=== PATIENT | female | born 1990 | race African-American/Black ===

== ENCOUNTER 2016-10-14 13:25 | Emergency (ER) | payer OTHER ==
[~2016-10-14] VITALS: Ht 170.2 cm; Wt 52.8 kg
[~2016-10-14 13:25] MED LIST: Aspirin E.C. PO; ENDOCET 5-3251 EACH PO; FERROUS SULFAT325 MG PO; Habitrol,Nicoderm CQ TD; IBUPROFEN800 MG PO; Keppra PO; MOTRIN800 MG PO; Rugrats,Centrum Kids PO; Zocor PO
[2016-10-14] MEDS ORDERED: PEN-VEE K,VEET500 MG PO (14:40)
[2016-10-14] MEDS ORDERED: TRAMADOL HCL50 MG PO (14:42)
[2016-10-14 14:55] VITALS: BP 153/109
== END 2016-10-14 15:10 | disposition home or self-care (01) ==
LOC: EME 13:25
PROC: 3E0T3BZ Introduction of Anesthetic Agent into Peripheral Nerves and Plexi, Percutaneous Approach (ICD-10-PCS; principal; 2016-10-14)
DX: K04.7 Periapical abscess without sinus (principal); K03.81 Cracked tooth; K02.9 Dental caries, unspecified; H92.02 Otalgia, left ear; F17.200 Nicotine dependence, unspecified, uncomplicated
CPT/HCPCS: 99281; 99284; S0020

== ENCOUNTER 2017-03-21 06:39 | Emergency (ER) | payer OTHER ==
[~2017-03-21] VITALS: Ht 170.2 cm; Wt 50.3 kg
[~2017-03-21 06:39] MED LIST changes: +PEN-VEE K,VEET500 MG PO; +TRAMADOL HCL50 MG PO
[2017-03-21 06:58] LABS: COLOR RED ((YELLOW))
[2017-03-21 07:27] LABS: ADD MIUA? YES; BILIRUBIN NEGATIVE; BLOOD LARGE; GLUCOSE (STRIP) NEGATIVE; KETONES NEGATIVE; LEUKOCYTES LARGE; NITRITE NEGATIVE; PROTEIN (STRIP) 300; SPECIFIC GRAVITY 1.015 (1.000-1.030); UROBILINOGEN 0.2 MG/DL (0.2-1.0)
[2017-03-21 07:35] LABS: RED BLOOD CELLS TNTC /HPF (0-5); UCUL ADDED? YES; WHITE BLOOD CELLS TNTC /HPF (0-5)
[2017-03-21] MEDS ORDERED: PYRIDIUM200 MG PO (07:38)
[2017-03-21] MEDS ORDERED: ZOFRAN ODT4 MG PO (07:38)
[2017-03-21] MEDS ORDERED: KEFLEX500 MG PO (07:38)
[2017-03-21 07:46] VITALS: BP 120/79
== END 2017-03-21 07:48 | disposition home or self-care (01) ==
LOC: EME 06:39
DX: N39.0 Urinary tract infection, site not specified (principal); Z87.440 Personal history of urinary (tract) infections; Z86.73 Personal history of transient ischemic attack (TIA), and cerebral infarction without residual deficits; F17.200 Nicotine dependence, unspecified, uncomplicated
CPT/HCPCS: 81003; 87077; 87086; 87186; 99281; 99284

== ENCOUNTER 2017-04-17 00:24 | Emergency (ER) | payer OTHER ==
[~2017-04-17] VITALS: Ht 170.2 cm; Wt 51.4 kg
[~2017-04-17 00:24] MED LIST changes: +KEFLEX500 MG PO; +PYRIDIUM200 MG PO; +ZOFRAN ODT4 MG PO
[2017-04-17 00:49] LABS: HEMATOCRIT 30.6 % (36.0-46.0); MCV 85.2 FL (83-99); MEAN PLAT.VOLUME 9.3 uM^3 (9.5-12.4); PLATELET COUNT 240 K/uL (156-360); RBC DIS.WIDTH-CV 14.6 % (11.8-14.6); RBC DIS.WIDTH-SD 45.3 % (39-53); RED BLOOD COUNT 3.59 M/uL (3.80-5.20); WHITE BLOOD COUNT 6.5 K/uL (4.1-10.2)
[2017-04-17 00:57] LABS: CHLORIDE 107 mEq/L (99-109); POTASSIUM 3.8 mEq/L (3.7-5.4); SODIUM 140 mEq/L (136-147)
[2017-04-17 01:00] LABS: GLUCOSE 129 mg/dL (70-99)
[2017-04-17 01:01] LABS: ANION GAP 11 MEQ/L (2-14)
[2017-04-17 01:02] LABS: TOTAL BILIRUBIN 0.5 mg/dL (0.0-1.0)
[2017-04-17 01:03] LABS: ALKALINE PHOSPHATASE 55 IU/L (3-129); GFR ESTIMATE (CALCULATED) > 59 mL/min/
[2017-04-17 01:04] LABS: UREA NITROGEN (BUN) 7 mg/dL (9-23)
[2017-04-17 01:13] LABS: QUANTITATIVE HCG < 4.0 MIU/ML
[2017-04-17 01:19] LABS: AMYLASE 106 IU/L (1-118)
[2017-04-17 01:28] LABS: LIPASE 11 U/L (1.0-51.0)
[2017-04-17] MEDS ORDERED: VIBRAMYCIN100 MG PO (02:37)
[2017-04-17] MEDS ORDERED: ZOFRAN ODT4 MG PO (02:37)
[2017-04-17] MEDS ORDERED: NORCO 5/3251 TABLET PO (02:37)
[2017-04-17 03:10] LABS: ADD MIUA? NO; BILIRUBIN NEGATIVE; BLOOD NEGATIVE; COLOR YELLOW ((YELLOW)); GLUCOSE (STRIP) NEGATIVE; KETONES 20; LEUKOCYTES NEGATIVE; NITRITE NEGATIVE; PROTEIN (STRIP) 30; UCUL ADDED? NO; UROBILINOGEN 0.2 MG/DL (0.2-1.0)
[2017-04-17 03:15] LABS: SPECIFIC GRAVITY > 1.060 (1.000-1.030)
[2017-04-17 03:28] VITALS: BP 156/90
[2017-04-17] MEDS ORDERED: [UNRECOGNIZED DRUG - OTHER] PO (03:30)
[2017-04-17 12:39] LABS: CHLAMYDIA TRACHOMATIS NEGATIVE; NEISSERIA GONORRHOEAE NEGATIVE
== END 2017-04-17 03:32 | disposition home or self-care (01) ==
LOC: EME 00:24
PROVIDERS: Physician Assistant
DX: N73.9 Female pelvic inflammatory disease, unspecified (principal); R10.84 Generalized abdominal pain; F17.200 Nicotine dependence, unspecified, uncomplicated; Z86.73 Personal history of transient ischemic attack (TIA), and cerebral infarction without residual deficits
CPT/HCPCS: 74177; 80053; 81003; 82150; 83690; 84702; 85027; 87210; 87491; 87502; 87591; 99281; 99285; J0696; J1885; J2405; J7030